=== PATIENT | male | born 1995 | race Caucasian/White ===

== ENCOUNTER 2018-05-20 05:23 | Emergency (ER) | payer OTHER ==
[~2018-05-20] VITALS: Ht 172.7 cm; Wt 76.2 kg
[2018-05-20 05:23] VITALS: BP_SYST 131
[2018-05-20] MEDS ORDERED: IBUPROFEN 600 MG TABLET PO ONE (05:30)
[2018-05-20 05:40] VITALS: BP_SYST 128
== END 2018-05-20 05:40 ==
LOC: SED 05:23
DX: Z02.89 Encounter for other administrative examinations (principal); Z88.7 Allergy status to serum and vaccine; V43.52XA Car driver injured in collision with other type car in traffic accident, initial encounter; Y93.89 Activity, other specified; Y92.410 Unspecified street and highway as the place of occurrence of the external cause; Y99.8 Other external cause status
CPT/HCPCS: 99283